=== PATIENT | male | born 1990 | race Caucasian/White ===

== ENCOUNTER 2021-10-11 16:40 | Emergency (ER) | payer OTHER ==
[~2021-10-11] VITALS: Ht 175.3 cm; Wt 113.4 kg
[~2021-10-11 16:40] MED LIST: BACTRIM DS TAB1 EACH PO; IBUPROFEN200 MG PO; ZOFRAN ODT4 MG SL
[2021-10-11] MEDS ORDERED: CEPHALEXIN500 MG PO (22:01)
== END 2021-10-11 22:22 | disposition home or self-care (01) ==
LOC: ED 16:40
DX: K02.9 Dental caries, unspecified (principal); R50.9 Fever, unspecified; R10.13 Epigastric pain; F17.200 Nicotine dependence, unspecified, uncomplicated; Z20.822 Contact with and (suspected) exposure to COVID-19
CPT/HCPCS: 36415; 71045; 74177; 80053; 81001; 83605; 83690; 85025; 85610; 87040; 99284-25; A9270; C9803; J0696; J7030; Q9967; U0003

== ENCOUNTER 2022-07-25 09:50 | Emergency (ER) | payer OTHER ==
[~2022-07-25] VITALS: Ht 175.3 cm; Wt 115.8 kg
[~2022-07-25 09:50] MED LIST changes: +CEPHALEXIN500 MG PO
== END 2022-07-25 13:19 | disposition home or self-care (01) ==
LOC: ED 09:50
DX: J10.1 Influenza due to other identified influenza virus with other respiratory manifestations (principal); Z20.822 Contact with and (suspected) exposure to COVID-19; F17.200 Nicotine dependence, unspecified, uncomplicated
CPT/HCPCS: 71045; 87502; 99283-25; A9270; C9803; U0003